=== PATIENT | female | born 1955 | race Caucasian/White ===

== ENCOUNTER 2017-12-02 14:44 | Emergency (ER) | payer BC ==
[2017-12-02 15:24] LABS: APPEARANCE,URINE TURBID; BILIRUBIN,URINE NEGATIVE (NEGATIVE); COLOR,URINE YELLOW; GLUCOSE, URINE NEGATIVE (NEGATIVE); KETONES,URINE TRACE mg/dL (NEGATIVE); LEUKOCYTE ESTERASE,URINE LARGE (NEGATIVE); NITRITE,URINE NEGATIVE (NEGATIVE); PROTEIN,URINE >=500 mg/dL (NEGATIVE); URINE SPECIFIC GRAVITY 1.011; UROBILINOGEN,URINE NEGATIVE mg/dL (<2.0)
--- NOTE | 2017-12-02 15:44 | ER Document Report ---
ED Medical Screen (RME) - General Chief Complaint: Abdominal Pain Stated Complaint: LEFT SIDE PAIN, ABDOMINAL PAIN Time Seen by Provider: 12/02/17 15:19 Notes: 8-year-old female patient onset 2:00 this morning of left flank pain radiating into the left lower quadrant. Urinalysis on a voided specimen shows too numerous to count WBCs and 7 RBCs. She does have a past history of kidney stones. She has a right sided diverting ureterostomy with plans to have it anastomosed to the bladder this coming Wednesday. I have greeted and performed a rapid initial assessment of this patient. A comprehensive ED assessment and evaluation of the patient, analysis of test results and completion of the medical decision making process will be conducted by additional ED providers. TRAVEL OUTSIDE OF THE [place] IN LAST 30 DAYS: No - Related Data Allergies/Adverse Reactions: No Known Allergies Allergy (Verified 12/02/17 14:45) Past Medical History - Social History Frequency of alcohol use: Occasional Drug Abuse: None Renal/ Medical History: Denies: Hx Peritoneal Dialysis Physical Exam - Vital signs Vitals: Temp Pulse Resp BP Pulse Ox 98.4 F 112 H 18 122/65 100 12/02/17 14:49 12/02/17 14:49 12/02/17 14:49 12/02/17 14:49 12/02/17 14:49 Course - Vital Signs Vital signs: Temp Pulse Resp BP Pulse Ox 98.4 F 112 H 18 122/65 100 12/02/17 14:49 12/02/17 14:49 12/02/17 14:49 12/02/17 14:49 12/02/17 14:49 - Laboratory Laboratory results interpreted by me: 12/02/17 14:50 Urine Protein >=500 H Urine Ketones TRACE H Urine Blood SMALL H Ur Leukocyte Esterase LARGE H Doctor's Discharge - Discharge Referrals: SERGEY HUGHES MD [Primary Care Provider] - Follow up as needed
[2017-12-02 16:00] LABS: ABSOLUTE BASOPHILS # (AUTO) 0.1 10^3/uL (0.0-0.2); ABSOLUTE LYMPHOCYTES (AUTO) 1.4 10^3/uL (0.5-4.7); ABSOLUTE NEUT (AUTO) 9.1 10^3/uL (1.7-8.2); BASOPHILS % (AUTO) 0.7 % (0-2); EOSINOPHILS % (AUTO) 0.2 % (0-6); HEMATOCRIT 35.5 % (36.0-47.0); HEMOGLOBIN 11.6 g/dL (12.0-15.5); LYMPHOCYTES % (AUTO) 12.1 % (13-45); MEAN CORPUSCULAR HEMOGLOBIN 25.3 pg (27.0-33.4); MEAN CORPUSCULAR HGB CONC 32.7 g/dL (32.0-36.0); MEAN CORPUSCULAR VOLUME 77 fl (80-97); MONOCYTES % (AUTO) 8.3 % (3-13); PLATELET COUNT 298 10^3/uL (150-450); RED CELL DISTRIBUTION WIDTH 17.1 % (11.5-14.0); SEGMENTED NEUTROPHILS % (AUTO) 78.7 % (42-78); TOTAL CELLS COUNTED % (AUTO) 100 %; WHITE BLOOD COUNT 11.6 10^3/uL (4.0-10.5)
--- NOTE | 2017-12-02 16:16 | RADIOLOGY REPORT (SQ) ---
EXAM DESCRIPTION: CT LTD RENAL STONE PROTOCOL ON COMPLETED DATE/TIME: 12/02/2017 3:59 pm REASON FOR STUDY: L flank pain, PMH stones left flank pain, past history of urinary calculi COMPARISON: None. TECHNIQUE: CT scan of the abdomen and pelvis performed without intravenous or oral contrast. Images reviewed with lung, soft tissue, and bone windows. Reconstructed coronal and sagittal MPR images revi ewed. All images stored on PACS. All CT scanners at this facility use dose modulation, iterative reconstruction, and/or weight based d osing when appropriate to reduce radiation dose to as low as reasonably achievable (ALARA). [facility]: Dose Right [facility]: CareDose [facility]: Dose Right [facility]: Teradose 4D [facility]: [employer] RADIATION DOSE: CT Rad equipment meets quality standard of care and radiation dose reduction techniq ues were employed. CTDIvol: 5.1 mGy. DLP: 254 mGy-cm.mGy. LIMITATIONS: None. FINDINGS: LOWER CHEST: No significant findings. No nodules or infiltrates. NON-CONTRASTED LIVER, SPLEEN, ADRENALS: Evaluation limited by lack of IV contrast. No identified sign ificant masses. PANCREAS: No masses. No peripancreatic inflammatory changes. GALLBLADDER: No identified stones by CT criteria. No inflammatory changes to suggest cholecystitis. RIGHT KIDNEY AND URETER: There is a right-sided nephrostomy down vision in, mean tail on Ms. in the r ight 9. 5 mm right upper pole intrarenal nonobstructive stone. No right renal cysts or masses. No hydronephrosis or hydroureter. LEFT KIDNEY AND URETER: No suspicious masses. Assessment limited by lack of IV contrast. No signifi cant calcifications. There is mild left perinephric stranding and very mild prominence of the left renal pelvis and ureter without urinary stones. This finding can be seen in pyelonephritis. This re port was called to Dr. Pardo in the emergency room. AORTA AND RETROPERITONEUM: No aneurysm. No retroperitoneal masses or adenopathy. BOWEL AND PERITONEAL CAVITY: No obvious masses or inflammatory changes. No free fluid. Sigmoid colon diverticulosis without CT signs of acute diverticulitis APPENDIX: Normal. PELVIS, BLADDER, AND ABDOMINAL WALL:Urinary bladder decompressed. Post hysterectomy. No free pelvic fluid. No pelvic adenopathy BONES: No significant findings. OTHER: No other significant finding. IMPRESSION: Very mild left hydronephrosis and hydroureter down to the bladder. Mild left perinephri c stranding. Findings worrisome for left-sided pyelonephritis without obstructive urinary stones. COMMENT: Quality ID # [id number]: Final reports with documentation of one or more dose reduction techniques (e.g., Automated exposure control, adjustment of the mA and/or kV according to patient size, use of iterative reconstruction technique) TECHNICAL DOCUMENTATION: JOB ID: [id number] [employer]- All Rights Reserved Reading location - IP/workstation name: [facility]
[2017-12-02 16:17] LABS: ALANINE AMINOTRANSFERASE 23 U/L (9-52); ALBUMIN 4.4 g/dL (3.5-5.0); ALKALINE PHOSPHATASE 87 U/L (38-126); ANION GAP 15 (5-19); ASPARTATE AMINO TRANSFERASE 19 U/L (14-36); BILIRUBIN,DIRECT 0.4 mg/dL (0.0-0.4); BILIRUBIN,TOTAL 0.4 mg/dL (0.2-1.3); BLOOD UREA NITROGEN 17 mg/dL (7-20); CARBON DIOXIDE 26 mmol/L (22-30); CHLORIDE 99 mmol/L (98-107); GLUCOSE 113 mg/dL (75-110); POTASSIUM 4.6 mmol/L (3.6-5.0); SODIUM 139.5 mmol/L (137-145); TOTAL PROTEIN 7.3 g/dL (6.3-8.2)
[2017-12-02] MEDS ORDERED: LIDOCAINE 1% INJ-PF (10 MG/ML) 30 ML SDV INJ ONE (18:33)
[2017-12-02] MEDS ORDERED: HYDROCODONE/ACETAMINOPHEN 5-325 MG TABLET PO ONE (18:33)
[2017-12-02] MEDS ORDERED: CEFTRIAXONE INJ 1000 MG VIAL IM ONE (18:33)
[2017-12-02] MEDS ORDERED: CIPROFLOXACIN HCL 750 MG TABLET PO ONE (18:33)
--- NOTE | 2017-12-02 18:38 | ER Document Report ---
ED GI/ - General Chief Complaint: Abdominal Pain Stated Complaint: LEFT SIDE PAIN, ABDOMINAL PAIN Time Seen by Provider: 12/02/17 15:19 Mode of Arrival: Ambulatory Information source: Patient, Relative Notes: 62-year-old female patient comes emergency room complaining of onset at 2 AM this morning of left abdominal pain. She reports there is left flank pain which seems to radiate to the left lower quadrant. There is no fever, there is no vomiting. 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 She is scheduled next Wednesday to have that stenosis resected and an anastomosis of the ends of the ureter on either side of the stenotic area. TRAVEL OUTSIDE OF THE [place] IN LAST 30 DAYS: No - Related Data Allergies/Adverse Reactions: No Known Allergies Allergy (Verified 12/02/17 14:45) Past Medical History - General Information source: Patient, Relative - Social History Smoking Status: Former Smoker Cigarette use (# per day): No Chew tobacco use (# tins/day): No Frequency of alcohol use: Occasional Drug Abuse: None Lives with: Spouse/Significant other Family History: Reviewed & Not Pertinent Patient has suicidal ideation: No Patient has homicidal ideation: No - Past Medical History Cardiac Medical History: Reports: Hx Hypercholesterolemia, Hx Hypertension, Other - SVT Pulmonary Medical History: Reports: None EENT Medical History: Reports: None Neurological Medical History: Reports: None Endocrine Medical History: Reports: None Renal/ Medical History: Reports: Other - Right ureteral stenosis Malignancy Medical History: Reports: Other - Bladder cancer GI Medical History: Reports: Hx Gastroesophageal Reflux Disease Musculoskeltal Medical History: Reports Hx Arthritis - Rheumatoid arthritis Skin Medical History: Reports None Psychiatric Medical History: Reports: None Past Surgical History: Reports: Hx Breast Surgery - Rest reduction, Hx Cardiac Catheterization - Ablation therapy for SVT, Hx Hysterectomy, Hx Urinary Tract Surgery - right nephrostomy tube placed 08/2017, Other - Multiple bladder cancer surgeries Review of Systems - Review of Systems Constitutional: No symptoms reported EENT: No symptoms reported Cardiovascular: No symptoms reported Respiratory: No symptoms reported Gastrointestinal: No symptoms reported Genitourinary: See HPI Female Genitourinary: Post menopausal Musculoskeletal: No symptoms reported Skin: No symptoms reported Hematologic/Lymphatic: No symptoms reported Neurological/Psychological: No symptoms reported Physical Exam - Vital signs Vitals: Temp Pulse Resp BP Pulse Ox 98.4 F 112 H 18 122/65 100 12/02/17 14:49 12/02/17 14:49 12/02/17 14:49 12/02/17 14:49 12/02/17 14:49 - General General appearance: Appears well, Alert In distress: None - HEENT Head: Normocephalic, Atraumatic Eyes: Normal Pupils: PERRL Neck: Normal - Respiratory Respiratory status: No respiratory distress Breath sounds: Normal - Cardiovascular Rhythm: Regular Heart sounds: Normal auscultation Murmur: No - Abdominal Inspection: Normal Bowel sounds: Normal Tenderness: Tender - Some left-sided tenderness - Back Back: CVA tenderness - Left CVA percussion tender - Extremities General upper extremity: Nontender, Normal strength General lower extremity: Nontender, Normal strength. No: Edema - Neurological Neuro grossly intact: Yes - Psychological Associated symptoms: Normal affect, Normal mood - Skin Skin Temperature: Warm Skin Moisture: Dry Skin Color: Normal Course - Re-evaluation Re-evalutation: 12/02/17 18:57 Exam, CT and laboratory findings consistent with left pyelonephritis. The patient does not have nausea or vomiting. She will be treated as an outpatient and given copies of all of her lab work and scans. She is to call her surgeon in the morning to relay the information about the pyelonephritis to see if they would like to cancel the elective procedure scheduled for Wednesday. - Vital Signs Vital signs: Temp Pulse Resp BP Pulse Ox 99.6 F 106 H 17 106/64 97 12/02/17 18:05 12/02/17 18:05 12/02/17 18:05 12/02/17 18:05 12/02/17 18:05 - Laboratory Result Diagrams: 12/02/17 15:46 12/02/17 15:46 Laboratory results interpreted by me: 12/02/17 12/02/17 12/02/17 14:50 15:46 15:46 WBC 11.6 H Hgb 11.6 L Hct 35.5 L MCV 77 L MCH 25.3 L RDW 17.1 H Seg Neutrophils % 78.7 H Lymphocytes % 12.1 L Absolute Neutrophils 9.1 H Glucose 113 H Urine Protein >=500 H Urine Ketones TRACE H Urine Blood SMALL H Ur Leukocyte Esterase LARGE H - Diagnostic Test Radiology reviewed: Image reviewed, Reports reviewed - Left renal stranding with mild hydronephrosis and hydroureter down to the bladder, no obstructing stones. Most consistent with pyelonephritis. Right nephrostomy tube. Discharge - Discharge Clinical Impression: Acute pyelonephritis Condition: Stable Disposition: HOME, SELF-CARE Additional Instructions: Pyelonephritis: Your evaluation shows evidence of pyelonephritis. This is an infection in the kidney. Typical symptoms are fever, pain in the flank, pain on urination, and frequent urination. Many cases of pyelonephritis can be treated at home. Hospital care may be necessary for patients who are very ill, or elderly or . Pyelonephritis is treated with antibiotics. Be sure to take all the medication as prescribed. Drink plenty of liquids (about three quarts per day) . You may take acetaminophen for fever. You should feel significantly improved within two days. You should have a recheck of your urine in about one week to insure that the infection is gone. Return for a re-examination if your symptoms worsen in any way -- such as high fever, shaking chills, severe weakness or dizziness, severe pain, or inability to pass your urine. Take the medications as prescribed. Drink plenty fluids. Call your surgeon tomorrow to report the new kidney infection. Take the CD of your scan, the radiology report, and the lab work copies to follow-up with your doctor. The urine culture results may be ready by late Wednesday or Wednesday. RETURN TO THE EMERGENCY ROOM IF ANY NEW OR WORSENING SYMPTOMS. Prescriptions: Ciprofloxacin HCl [Cipro 750 mg Tablet] 750 mg PO BID #14 tablet Hydrocodone/Acetaminophen [[place] 5-325 mg Tablet] 1 tab PO Q4 PRN #15 tablet PRN Reason: Referrals: SERGEY HUGHES MD [Primary Care Provider] - Follow up as needed
[2017-12-02 19:11] VITALS: BP 117/68
--- NOTE | 2017-12-05 08:56 | ER Document Report ---
Doctor's Note Notes: 12/05/17 08:55 recieved call from lab regarding patients esbl ecoli, sensitive to macrobid , spoke with patient and called medication [facility]
== END 2017-12-02 19:11 | disposition home or self-care (01) ==
LOC: ER 14:44
DX: N10 Acute pyelonephritis (principal); R10.9 Unspecified abdominal pain; R10.32 Left lower quadrant pain; Z87.891 Personal history of nicotine dependence; I10 Essential (primary) hypertension
CPT/HCPCS: 99284; 96372; 36415; 87086; 85025; 87088; 80053; 81001; 87186; 76380; J3490 ×2; J0696